=== PATIENT | female | born 1965 | race Caucasian/White ===

== ENCOUNTER 2019-02-11 15:16 | Inpatient (IN) | payer OTHER ==
[~2019-02-11] VITALS: Ht 157.5 cm; Wt 66.7 kg
[2019-02-11 15:29] VITALS: BP 107/74
[2019-02-11 16:18] LABS: ABSOLUTE EOSINOPHILS 0.1 thou/uL (0.0-0.7); ABSOLUTE LYMPHOCYTES 1.5 thou/uL (0.8-5.3); ABSOLUTE MONOCYTES 0.6 thou/uL (0.0-1.2); ABSOLUTE NEUTROPHILS 6.7 thou/uL (1.6-8.1); BASOPHILS 0.2 %; EOSINOPHILS 1.4 %; HEMATOCRIT 42.7 % (37.0-47.0); HEMOGLOBIN 13.8 gm/dL (12.0-15.0); MCH 27.2 pg (26.0-34.0); MCHC 32.4 g/dL (28.0-37.0); MCV 84.1 fL (80.0-100.0); MONOCYTES 6.7 %; MPV 8.4 fl. (7.2-11.1); NUCLEATED RBCS 0 /100WBC; PLATELET COUNT* 209 thou/uL (150-400); POLYS 74.7 %; RBC 5.08 mil/uL (4.20-5.00); RDW-CV 15.6 % (10.5-14.5); WBC 8.9 thou/uL (4.0-11.0)
[2019-02-11 16:20] LABS: CALCIUM 7.9 mg/dL (8.5-10.1); CREATININE 1.3 mg/dL (0.6-1.3); POTASSIUM 3.6 mmol/L (3.5-5.1)
[2019-02-11 16:24] LABS: ALBUMIN 3.1 g/dL (3.4-5.0); MAGNESIUM 1.6 mg/dL (1.8-2.4); TOTAL BILIRUBIN 0.4 mg/dL (<0.1-1.0); TOTAL PROTEIN 7.1 g/dL (6.4-8.2)
[2019-02-11 16:41] LABS: BE -2.6 mmol/L (-2 to +3); PCO2 27.2 mmHg (35.0-45.0); PO2 68.2 mmHg (75.0-100.0); pH 7.475 (7.340-7.450)
[2019-02-11 19:16] VITALS: BP 134/91
[2019-02-11 19:30] VITALS: BP 120/74
--- NOTE | 2019-02-11 19:30 | NUR ---
PT TO UNIT AT 1905. NO ACUTE DISTRESS. O2 ON AT 2L/NC FOR SOA BUT O2 SAT 99%. TELEMETRY APPLIED SHOWING [facility] [place] LOWER LEGS WITH 2+ EDEMA, FEET COOL TO TOUCH. SEE ADMISSION ASSESSMENT AND HX. WILL CONT TO MONITOR AND ASSIST NEEDED.
[2019-02-11 20:59] LABS: HEMATOCRIT 42.4 % (37.0-47.0); HEMOGLOBIN 13.7 gm/dL (12.0-15.0); MCH 26.9 pg (26.0-34.0); MCHC 32.3 g/dL (28.0-37.0); MCV 83.1 fL (80.0-100.0); MPV 8.7 fl. (7.2-11.1); RBC 5.1 mil/uL (4.20-5.00); RDW-CV 15.9 % (10.5-14.5); WBC 7.9 thou/uL (4.0-11.0)
[2019-02-11 21:08] LABS: INR 1.1; PROTIME 11.4 Seconds (9.20-11.50)
[2019-02-12] VITALS: BP 106/62
[2019-02-12 04:00] VITALS: BP 110/49
--- NOTE | 2019-02-12 06:27 | NUR ---
SLEPT WELL TONIGHT. DIURESED LG AMT OF COLORLESS URINE. HEPARIN CONT TO INFUSE AND ADJUSTED TO PTT RESULTS. TELEMETRY CONT TO SHOW SR. O2 OFF MOST OF NIGHT. NO CHANGE IN ASSESSMENT. HS GOALS OF REST AND SAFETY ACHIEVED. HOURLY ROUNDING OBSERVED.
[2019-02-12 08:00] VITALS: BP 117/78
[2019-02-12 12:00] VITALS: BP 108/64
[2019-02-12 16:00] VITALS: BP 118/73
[2019-02-12 20:01] VITALS: BP 127/70
[2019-02-13 00:22] VITALS: BP 105/63
[2019-02-13] MEDS ORDERED: IBU400 MG PO (01:54)
[2019-02-13 04:45] VITALS: BP 111/73
[2019-02-13 06:34] LABS: ANION GAP 6 mmol/L (7-16); BUN 18 mg/dL (7-18); CALCIUM 8.3 mg/dL (8.5-10.1); CHLORIDE 108 mmol/L (98-107); CO2 30 mmol/L (21-32); CREATININE 1.1 mg/dL (0.6-1.3); GLUCOSE 91 mg/dL (70-99); SODIUM 144 mmol/L (136-145)
[2019-02-13 06:49] LABS: TROPONIN-I LEVEL 0.82 ng/mL (<0.06)
[2019-02-13 06:50] LABS: POTASSIUM 2.9 mmol/L (3.5-5.1)
[2019-02-13 07:17] LABS: CHOLESTEROL 124 mg/dL (<200); HDL CHOLESTEROL 39 mg/dL (>40); LDL CHOLESTEROL 74 mg/dL (<100); TC:HDL 3.2 Ratio (Not establshd); TRIGLYCERIDE 57 mg/dL (<150); VLDL 11 mg/dL (<40)
[2019-02-13 07:24] LABS: SERUM ASSESSMENT Clear
[2019-02-13 08:00] VITALS: BP 101/72
--- NOTE | 2019-02-13 08:28 | NUR ---
PT IS ABLE TO COMMUNICATE HER NEEDS TO STAFF EFFECTIVELY. SHE HAS DENIED THE NEED FOR PAIN MEDICAITON UP TO THIS TIME. CRITICAL LAB VALUES RECEIVED THIS AM AND REPORTED VERBALLY TO THE CARDIOLOGY MD, WHO WAS ON THE UNIT. PT TENTATIVELY SCHEDULED TO HAVE A CARDIAC CATH ON THURSDAY; TROPONINS HIGH, BUT TRENDING DOWN; SHE HAS DENIED CHEST PAIN OVERNIGHT.
--- NOTE | 2019-02-13 09:45 | CON ---
[address] [address] CONSULTATION Name: CHHAYAANIA K Room: [place] [address] ADM IN M.R.#: [id number] Admission: 02/11/19 Attend Phys: Silvia Duke Discharge: Date of : 69 Report #: [id number] THIS REPORT FOR: //name// CC: [facility] physician/PCP Tiffanie John DATE OF SERVICE: 02/12/2019 CARDIOLOGY CONSULTATION HISTORY OF PRESENT ILLNESS: The patient is a 53-year-old single white female who I was asked to see in the hospital after she complained of being short of breath. The history is obtained from the patient. There are old records available. The patient denies previous history of heart disease. She stays very active. She is on no chronic medications. She states she was doing well until 3 weeks ago when she had increasing shortness of breath, lower extremity edema. She actually went to the Emergency Room at [facility], was evaluated and sent home. She went to the Emergency Room at [facility] was also evaluated and sent home. She finally went to [facility] as an outpatient told she had pneumonia, was given Z-CHUY and steroids. However, she continued to be short of breath, so she came to the Emergency Room last night and was admitted. Cardiology consultation was requested. She has had a dry cough, but no fever or chills. She denied any pain in her legs. She denied any orthopnea or PND. Shortness of breath mainly occurs with exertion. She has no history of heart murmur. She denies any exertional chest tightness, arm pain. Denies any palpitations or syncope. PAST MEDICAL HISTORY: She is a G1, P1 with menopause years ago. She has had previous tonsillectomy, tubal ligation. She has no history of hypertension and diabetes. MEDICATIONS: No chronic medications. ALLERGIES: SHE HAS AN ALLERGY TO PENICILLIN. FAMILY HISTORY: Significant for diabetes, hypertension, stroke. SOCIAL HISTORY: She is , lives in [place] by herself. 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 She apparently recently lost a child. She grew up in foster care. She smokes half pack of cigarettes a day. She has a history of alcohol abuse, drinking up to a pint of whisky a day. She did go through AA. She does smoke marijuana. No IV drugs. REVIEW OF SYSTEMS: She had no history of stroke. She has used an inhaler in the past. No history of hepatitis, GI bleeding, kidney disease. She has seen a psychiatrist in the past. [place] [address] CONSULTATION Name: ANIA SHAVER Room: [address] IN [facility].#: [id number] Admission: 02/11/19 Attend Phys: Silvia Duke Discharge: Date of : 69 Report #: [id number] PHYSICAL EXAMINATION: GENERAL: Revealed a middle-aged female, who appeared in no acute distress. VITAL SIGNS: She had a blood pressure of 110/60, pulse is 90. She is afebrile. HEENT: She was anicteric. Conjunctivae pink. Mucous members are moist. NECK: Veins appear mildly distended. No carotid bruits. CHEST: Revealed expiratory wheezes. CARDIOVASCULAR: Regular rate and rhythm, grade 3 holosystolic murmur at the apex. ABDOMEN: Soft. EXTREMITIES: Had trace edema. Dorsalis pedis pulse cannot be palpated. SKIN: Cool and dry. NEUROLOGIC: Nonfocal. DIAGNOSTIC DATA: Her ECG on admission yesterday showed a sinus rhythm. There was nonspecific ST and T-wave changes noted. Workup in the Emergency Room yesterday, she had portable chest x-ray showed cardiomegaly, pulmonary vascular congestion, small effusion, some atelectasis. She actually had a CT scan using a PE protocol in the Emergency Room yesterday that showed no pulmonary embolus, no aortic dissection, small effusion and some atelectasis, hyperinflated lung cline. LABORATORY DATA: Sodium 142, creatinine 1.3, glucose 126. Liver function studies were normal. Her troponin was elevated at 0.95, repeat 0.94. BNP 13,951. White blood cell count 7.9, hematocrit 42.4. IMPRESSION AND RECOMMENDATIONS: 1. Non-ST elevation myocardial infarction. Recommend cardiac catheterization when the patient has stabilized from chronic obstructive pulmonary disease and heart failure. In the meantime, I would recommend Lovenox and aspirin. I would not recommend a beta-adan due to her wheezing. 2. Chronic obstructive pulmonary disease. 3. Pulmonary edema, suspect secondary to non-STEMI. The patient is noted to have mitral regurgitation. 4. Murmur of mitral regurgitation. Recommend cardiac catheterization. 5. Tobacco abuse. 6. History of alcohol abuse. 7. History of depression. <ELECTRONICALLY SIGNED> By: Alfonso Gibson MD, FACC 02/13/19 0945 [id number] Gibson MD, FACC /nt
[2019-02-13 12:00] VITALS: BP 108/68
[2019-02-13 16:00] VITALS: BP 108/68
[2019-02-13 20:00] VITALS: BP 122/73
--- NOTE | 2019-02-13 20:18 | NUR ---
ASSUMED PT CARE AT 0730. ASSESSMENT COMPLETED CHARTED. ABLE TO MAKE NEEDS KNOWN. NO C/O PAIN OR DISCOMFORT. UP AD SULEMA IN ROOM. TALKATIVE AND PLEASENT. RESTING IN ROOM ALL DAY WITH NO NEEDS. WILL CONTINUE TO MONITOR.
[2019-02-14] VITALS (16 sets, daily range): BP systolic 96–118; BP diastolic 65–82
--- NOTE | 2019-02-14 04:45 | NUR ---
ASSUMED CARE OF PT AFTER REPORT AT 1930. PT A&OX4. VSS. PHYSICAL ASSESSMENT COMPLETED AND CHARTED. PT ON RA. PT TRACING SR ON TELE. PT UPADLIB TO RESTOOM. PT DENIES ANY PAIN OR DISCOMFORT. INSTRUCTED ON NPO POST MIDNIGHT FOR CARDICA CATHETERIZATION TODAY. COMMUNICATES UNDERSTANDING.CALL LIGHT WITHIN REACH.
[2019-02-14 05:16] LABS: ALBUMIN 2.9 g/dL (3.4-5.0); CALCIUM 8.1 mg/dL (8.5-10.1); CREATININE 1.2 mg/dL (0.6-1.3); MAGNESIUM 1.6 mg/dL (1.8-2.4); POTASSIUM 4.2 mmol/L (3.5-5.1); TOTAL BILIRUBIN 0.5 mg/dL (<0.1-1.0); TOTAL PROTEIN 6.4 g/dL (6.4-8.2)
--- NOTE | 2019-02-14 15:07 | EKG ---
[place] [address] ELECTROCARDIOGRAM REPORT Name: ANIA SHAVER Room: [place] [address] ADM IN M.R.#: [id number] Admission: 02/11/19 Attend Phys: Silvia Duke Discharge: Date of : 69 Report #: [id number] THIS REPORT FOR: //name// [facility] ED Test Date: 2019-02-11 Test Time: 16:42:35 Pat Name: ANIA SHAVER Department: Room: [place] [address] Gender: F Painter Foreman: [facility] : 1965 Requested By: Kary Chester Order Number: [id number] Lianet MD: Alfonso Gibson Measurements Intervals [place] Rate: 95 P: 57 DC: 178 QRS: 50 QRSD: 89 T: QT: 347 QTc: 436 Interpretive Statements Sinus rhythm LVH with secondary repolarization abnormality No previous ECG available for comparison Electronically Signed On 02-14-2019 15:06:37 SECURITY CONTROL ASSESSOR by Alfonso Gibson [email or web address] <ELECTRONICALLY SIGNED> By: Alfonso Gibson MD, [facility] 02/14/19 1506 1642 1642 Alfonso Gibson MD, FACC /EPI
--- NOTE | 2019-02-14 16:59 | NUR ---
Pt is A&O. Resides at home. Independent. No DME. No hx of HH or SNF. Goal is home at ut. Following.
--- NOTE | 2019-02-14 17:54 | CARD ---
[address] [address] CARDIAC CATH REPORT Name: ANIA SHAVER Room: [address] IN .R.#: [id number] Admission: 02/11/19 Attend Phys: Silvia Duke Discharge: Date of : 69 Report #: [id number] THIS REPORT FOR: //name// ADDENDUM APPROVED REPORT Study performed: 02/14/2019 10:16:43 Patient Details Patient Status: In-Patient Room #: The patient is a 53 year-old female Event Personnel Alfonso Gibson Oceanologist, Isa Arteaga RN Fast Food Cook, Lennie Li RTR Monitor, Jackie Chowdhury RTR Scrub Procedures Performed Art Access - R femoral artery, Left Heart Cath w/or w/o Coronaries, Supravalvular Aortography Injection, Hemostasis w/ Mynx Indication Non-STEMI , Dyspnea, Heart failure, Murmur Risk Factors Tobacco History () Admission/Lab Medications/Medications given during procedure Oxygen Nasal cannula 2 l per min, Midazolam (Versed) IV 2 mg, Fentanyl IV 25 mcg Procedure Narrative The patient was brought electively to the Cardiac Catheterization Laboratory and was prepped and draped in a sterile manner. The right femoral was infiltrated with 2% Lidocaine subcutaneous anesthesia. A 6fr Ultimum Sheath sheath was inserted into the right femoral artery. Coronary angiography was performed using coronary diagnostic catheters. The right coronary system was accessed and visualized with a 6F JR4 catheter. The left coronary system was accessed and visualized with a 6F JL4 catheter. The left ventricle was accessed and visualized with a 6F Pigtail catheter. Left ventricular/Aortic Valve gradient assessed via catheter pullback. Left ventriculogram was performed in MERRILL projection. An aortogram of the ascending aorta was performed. Closure device was deployed with a 6 Fr Mynx. The patient tolerated the procedure well [place] [address] CARDIAC CATH REPORT Name: ANIA SHAVER Room: [address] IN [facility]#: [id number] Admission: 02/11/19 Attend Phys: Silvia Duke Discharge: Date of : 69 Report #: [id number] associated with the procedure. There was no hematoma. Attempted right radial angiogram, but unable to cannulate the right radial artery. Aortic root injection showed moderate aortic insufficiency Intraoperative Conscious Sedation Sedation start time: 12:17 Case end Time: 13:18 Fentanyl 50 mcg Versed 3 mg Fluoro Time: 7.8 minutes Dose: DAP 67247 cGycm2 1005 mGy Contrast Type and Amount: Omnipaque 120 ml Coronary Angiography The patient's coronary anatomy is left dominant. [place] Artery Percent Stenosis Left Main: 0 % Prox LAD: 0 % Mid/Distal LAD: 0 % Circumflex: 0 % RCA: 0 % Ramus: % Left Ventriculography The left ventricular ejection fraction is estimated to be 25-30%. There is 1+ mitral insufficiency. Global hypokinesis noted of the left ventricle. Hemodynamics The aortic pressure is 110/70 mmHg with a mean of 89 mmHg. The left ventricular pressure is 170/20 mmHg with a mean of mmHg. The left ventricular end diastolic pressure is 25 mmHg. Pullback from the left ventricle to the aorta revealed a 60 mm gradient across the aortic valve. Conclusion 1. normal coronary arteries 2. LVEF 25-30% 3. severe aortic stenosis and moderate aortic insufficiency Recommendations Valve Surgery <ELECTRONICALLY SIGNED> By: Alfonso Gibson MD, FACC 02/14/19 1754 1754 1754Dmary Gibson MD, FACC /INF
[2019-02-15] VITALS (7 sets, daily range): BP systolic 100–113; BP diastolic 66–82
--- NOTE | 2019-02-15 04:22 | NUR ---
PT ALERT ORIENTED. UP AD SULEMA. INITAL ASSESSMENT SHIFT CHECKED GROIN SITE WITH ONCOMING RN. DRSG WAS PINK. BRUSING AROUND SITE. DRAW AROUND SITE WITH PEN. APPROX 0300 PT CALLED OUT SAYING HER R GROIN WAS REALLY HURTING. BRUSING APPROX 2 CM OUT SIDE OF LINE. DRSG REMOVED. PRESSURE HELD FOR 30 MINUTES. TYLENOL GIVEN FOR PAIN. PT STATES IT DOES NOT HURT BAD. LOOSE STOOLS THIS SHIFT. TELEMETRY SHOWS SR. WILL CONTINUE TO MONITOR.
[2019-02-15 05:20] LABS: CALCIUM 8.3 mg/dL (8.5-10.1); CREATININE 1.2 mg/dL (0.6-1.3); POTASSIUM 4.8 mmol/L (3.5-5.1)
[2019-02-15] MEDS ORDERED: LASIX 40 MG TAB40 MG PO (13:55)
[2019-02-15] MEDS ORDERED: SPIRONOLACTONE25 M1 PO (14:01)
[2019-02-15] MEDS ORDERED: CARVEDILOL12.5 MG PO (14:05)
[2019-02-15] MEDS ORDERED: VENTOLIN HFA 1818 GM INH (14:07)
[2019-02-15] MEDS ORDERED: PROAIR HFA8.5 GM INH (14:19)
--- NOTE | 2019-02-15 14:37 | NUR ---
CM F/U W/PT TO DISCUSS PLANNING. CM WANTED TO PROVID PT W/REFERRAL FOR HEART SURGERY. 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 PT STATED SHE IS STILL WAITING TO HEAR BACK FROM HER EMPLOYEER. [facility] HAS BEEN CONTACTED, MEDICAID REFERRAL GIVEN. PT REFUSED REFERRAL FROM [place]. PT STATED, "THEY ARE THE ONES THAT TOLD ME THERE WAS NOTHING WRONG WITH ME." CM TO REMAIN AVAIL TO ASSIST NEEDED.
--- NOTE | 2019-02-15 14:51 | NUR ---
ASSUMED CARE OF PT APPROX 0730. REASSESSMENT COMPLETED CHARTED. MEDICATIONS GIVEN CHARTED. PT TEACHING COMPLETED ABOUT NEW MEDICATIONS, PT VERBALIZED UNDERSTANDING. SAFTEY PRECAUTIONS UTILIZED, HOURLY ROUNDED. PT DISCHARGE TEACHING COMPLETED WITH PT, PT VERBALIZED UNDERSTADING. PT TAKEN TO VEHICLE WITH STAFF APPROX 1430.
== END 2019-02-15 14:30 | disposition home or self-care (01) | DRG 281 ==
LOC: M.ERS 15:16 → M.2W 17:59 → M.TBA-ER 17:59 → M.2W 19:15
PROVIDERS: Internal Medicine Cardiovascular Disease; Personal Emergency Response Attendant; ADMIT Internal Medicine
DX: I21.4 Non-ST elevation (NSTEMI) myocardial infarction (principal); I42.9 Cardiomyopathy, unspecified; F12.90 Cannabis use, unspecified, uncomplicated; I50.9 Heart failure, unspecified; I35.0 Nonrheumatic aortic (valve) stenosis; E11.9 Type 2 diabetes mellitus without complications; J44.9 Chronic obstructive pulmonary disease, unspecified; I34.0 Nonrheumatic mitral (valve) insufficiency; F32.9 Major depressive disorder, single episode, unspecified; I11.0 Hypertensive heart disease with heart failure; F17.210 Nicotine dependence, cigarettes, uncomplicated; F41.9 Anxiety disorder, unspecified; E87.6 Hypokalemia; Z71.6 Tobacco abuse counseling; Z88.0 Allergy status to penicillin; Z83.3 Family history of diabetes mellitus; Z82.49 Family history of ischemic heart disease and other diseases of the circulatory system; Z82.3 Family history of stroke; Z28.21 Immunization not carried out because of patient refusal; Z79.899 Other long term (current) drug therapy